=== PATIENT | male | born 1990 | race Two or more races ===

== ENCOUNTER 2025-03-20 14:25 | Emergency (ER) | payer OTHER ==
[~2025-03-20] VITALS: Ht 172.7 cm; Wt 86.2 kg
[2025-03-20 15:22] VITALS: BP 142/77; TEMP 98.9; O2SAT 96
== END 2025-03-20 15:24 ==
LOC: ER 14:35
DX: R07.89 Other chest pain (principal); M54.9 Dorsalgia, unspecified
CPT/HCPCS: 71045-TC